=== PATIENT | female | born 1960 | race American Indian/Alaskan Native ===

== ENCOUNTER 2017-07-31 13:11 | Day surgery (SDC) | payer OTHER ==
[2017-07-31] MEDS ORDERED: NACL 0.9% 1000 ML 1,000 ML IV SCH (15:00)
[2017-07-31] MEDS ORDERED: DIPRIVAN 10 MG/ML IV ONE ×2 (15:27)
[2017-07-31] MEDS ORDERED: WATER FOR IRRIG STERILE IR ONE (15:58)
[2017-07-31] MEDS ORDERED: XYLOCAINE MPF 2% ONE (16:00)
--- NOTE | 2017-07-31 16:35 | Discharge Summary ---
Short Stay Discharge Plan Activity: advance as tolerated Weight Bearing Status: Weight Bear as Tolerated Diet: regular Follow up with: SHANTELLE TAVERAS MD [Primary Care Provider] - 7 Days
--- NOTE | 2017-07-31 16:35 | Operative Report ---
Operative Report Operative Report: Date of procedure: 07/31/2017 Procedure: Colonoscopy with multiple hot biopsy polypectomies Attending physician: Niall Lujan MD Construction Manager: Niall Lujan MD Indication: Patient is a 57-year-old female who presents for colorectal cancer screening. A colonoscopy is done to evaluate patient so that treatment may be directed based on the findings. Consent: Informed consent was obtained after advising the patient and family regarding nature of this procedure, its indications, potential benefits as well as possible complications including but not limited to bleeding perforation and adverse reaction to medication, infection as well as other cardiopulmonary complications. An informed written and verbal consent was then obtained after due opportunity was provided for questions and answers. Monitoring: Patient was monitored continuously with pulse oximetry and electrocardiographic recordings as well as blood pressure recordings. Vital signs remained stable throughout this procedure with no untoward events. Preoperative assessment: Patient was assessed immediately prior to this procedure for capacity to tolerate monitored anesthesia care and moderate sedation as well as general anesthesia. Patient's ASA classification is 2, Mallampati class is 2, Hyomental distance is 3. Instrument: Yasoundn videocolonoscope Medications: Propofol, given intravenously in divided doses. For details please refer to anesthesia records. Description of procedure: Patient was placed in the left lateral decubitus position after achieving sedation, a digital rectal examination was performed following which the colonoscope was introduced into the anal verge and advanced to the cecum which was identified by the cecal valve, the appendiceal orifice, as well as by the cecal strap and direct transillumination. The colonoscope was subsequently withdrawn with careful inspection of all mucosal surfaces. Patient tolerated this procedure well and was subsequently taken to the recovery room. The following findings were noted. Findings: The colon was moderately tortuous. The preparation however was fair. The cecum was normal. The ascending colon was normal. The transverse colon was normal. The descending colon was normal. In the sigmoid colon, patient had 2 diminutive polyps measuring 4-5 mm each. Both polyps were removed by hot biopsy polypectomy and retrieved. The rest of the sigmoid colon was normal. The rectum was normal. On the retroflex view at the anal verge, patient had internal hemorrhoids. Impression: Internal hemorrhoids. Diminutive sigmoid colon polyps status post hot biopsy polypectomy. Plan: Follow pathology report. High-fiber diet. Consider repeat colonoscopy in 5 years if polyps are adenomatous.
[2017-07-31 17:08] VITALS: BP 112/75
== END 2017-07-31 13:12 | disposition home or self-care (01) ==
LOC: GIO 13:11
PROVIDERS: ATTEND Internal Medicine Gastroenterology
DX: Z12.11 Encounter for screening for malignant neoplasm of colon (principal); K63.89 Other specified diseases of intestine; K64.8 Other hemorrhoids; I50.9 Heart failure, unspecified; I10 Essential (primary) hypertension; E66.9 Obesity, unspecified; Z68.43 Body mass index [BMI] 50.0-59.9, adult; Z79.82 Long term (current) use of aspirin; Z79.899 Other long term (current) drug therapy; Z80.0 Family history of malignant neoplasm of digestive organs
CPT/HCPCS: 45384; 88305; J2704